=== PATIENT | male | born 1980 | race Caucasian/White ===

== ENCOUNTER 2017-01-29 19:06 | Inpatient (IN) | payer BC, OTHER ==
--- NOTE | ~2017-01-29 | PA ---
Unit #: [id number] #: [id number] Patient: KIRILL SERNA [id number] [facility] [address] [place] [address] [id number] MR#: [id number] NAME: KIRILL SERNA ROOM: 61 Age: 36 Sex: M Admission Date: 01/29/2017 : 1980 Date of Assessment: 01/29/2017 Attending Physician: Diana Castaneda M.D. Admitting Physician: Diana Castaneda M.D. Primary Care Physician: Primary Care Physician No PSYCHIATRIC ASSESSMENT DATE OF SERVICE 01/30/2017. IDENTIFYING DATA Mr. Serna is a 36-year-old white male, who is a resident of [place], [place], and was transferred to us from [facility] Emergency Room, where he was taken via EMS after intentional overdose of Vicodin. CHIEF COMPLAINT "I'm depressed and I'm suicidal." HISTORY OF PRESENT ILLNESS Mr. Serna is a 36-year-old white male with history of mood disorder, who was taken to [facility] with intentional overdose of Vicodin and reports that he took 25 mg tablets of Vicodin this morning after an altercation with his spouse at home and reports that he has been getting into argument with his spouse and he has been experiencing several stressors that precipitated to his suicide attempt and reports that his 's father and so she quit her job and has not been attending to tasks at home in terms of caring for children, buying groceries, and cleaning and the patient reports that he is taking care of his 4 children, his spouse identifying her as a child #5 and reports that he work 60 hours a week and 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 SUBSTANCE ABUSE HISTORY The patient reports history of alcohol abuse, but denies any other drug abuse. PAST PSYCHIATRIC HISTORY The patient has had history of inpatient psychiatric hospitalizations at [facility], and currently is not active in any treatment program, though he is supposed to be on Paxil 20 mg a day. PAST MEDICAL HISTORY The patient's medical history is insignificant. ALLERGIES No known medication allergies. Unit #: [id number] #: [id number] Patient: KIRILL SERNA PERSONAL AND SOCIAL HISTORY A 36-year-old white male, who reports that he is and lives at home with his and 4 children and has fairly decent social support system. MENTAL STATUS EXAMINATION Young white male who was casually dressed with fair personal hygiene, appears to be in no acute distress or discomfort. He was awake and alert on interaction with intact orientation to time, place, and person. His mood was anxious and depressed with a congruent affect. His speech was slow and restricted in content. His thought processes were disorganized with some looseness of associations and suicidal ideations. His insight and judgment remain significantly impaired. DIAGNOSTIC IMPRESSION Psychiatric: Major depressive disorder, recurrent, moderate, without psychotic features; generalized anxiety disorder. Medical: None. Stressors: Moderate psychosocial stressors. TREATMENT PLAN 1. The patient has presented with history of mood disorder and has been decompensating and will need inpatient hospitalization for safety and stabilization. We will start him back on his home medications. We will adjust the medications and monitor response. 2. Supportive therapy was provided to the patient. 3. Safe, structured, and nourishing environment will be reported. ESTIMATED LENGTH OF STAY 4 to 5 days. ABILITY TO HELP SELF Limited. WILLINGNESS TO HELP SELF The patient appears to be willing to help self. STRENGTHS 1. Communicative. 2. Cooperative. PROBLEMS 1. Chronic dysphoric symptoms. 2. Poor social support system. DISCHARGE CRITERIA This will be contingent upon the patient's ability to show resolution of his depression and anxiety and his ability to stay safe to himself, particularly after discharge from the hospital. Dictated by... Iram Poole/kirill TD: 01/30/2017 07:10 JOB #: [id number] Unit #: [id number] #: [id number] Patient: KIRILL SERNA PSYCHIATRIC ASSESSMENT Page 1 of 1 X Diana Castaneda MD PSYCHIATRIC ASSESSMENT
--- NOTE | ~2017-01-29 | HP ---
Unit #: [id number] #: [id number] Patient: KIRILL SERNA [id number] [place] [address] [id number] MR#: [id number] NAME: KIRILL SERNA ROOM: 61 Age: 36 Sex: M Admission Date: 01/29/2017 : 1980 Attending Physician: Diana Castaneda M.D. Admitting Physician: Diana Castaneda M.D. Primary Care Physician: Primary Care Physician No HISTORY AND PHYSICAL HISTORY OF PRESENT ILLNESS Kirill is a 36 year old admitted to [address] [place] [address] with depression and after an alleged overdose of five 5 mg hydrocodone tablets. He was medically cleared in a local emergency room and then transferred to [facility] for psychiatric care. PAST MEDICAL HISTORY Nothing significant. PAST SURGICAL HISTORY Right hand. ALLERGIES No known drug allergies. SOCIAL HISTORY Dips less than a can of snuff on a daily basis. Denies alcohol and illicit drug use. FAMILY HISTORY Medically noncontributory. REVIEW OF SYSTEMS CONSTITUTIONAL: No fever or chills. HEENT: Denies any sore throat, ear pain or runny nose. CARDIOVASCULAR: Denies chest pain, irregular heart rhythm or palpitations. CHEST: Denies shortness of breath or cough. No hemoptysis. GASTROINTESTINAL: Denies nausea, vomiting, diarrhea or chronic constipation. ENDOCRINE: Denies history of increased thirst or urination. No recent significant weight loss or gain. GENITOURINARY: Denies dysuria, frequency, or hematuria. SKIN: Denies any rashes. HEMATOLOGIC: Denies history of increased bleeding or bruising. MUSCULOSKELETAL: Denies any hot, swollen joints. No generalized muscle pain. NEUROLOGIC: Denies problems with vision or speech. No frequent, severe headaches. No numbness, tingling or weakness in any extremities. Denies loss of bladder or bowel control. CURRENT MEDICATIONS 1. BuSpar 10 mg b.i.d. 2. Paxil 40 mg daily. Unit #: [id number] #: [id number] Patient: KIRILL SERNA 3. Milk of Magnesia p.r.n. 4. Maalox p.r.n. 5. Tylenol p.r.n. PHYSICAL EXAMINATION GENERAL: Alert, well-nourished, in no apparent distress. VITAL SIGNS: Blood pressure 115/76, heart rate 58, respirations 16, temperature 98.6. WEIGHT: 196. HEIGHT: 5 feet 11 inches. SKIN: Warm and dry without rash or lesion. HEENT: Normocephalic. TMs not viewed. Oral and nasal passages clear. Conjunctivae clear. PERRLA. EOMs intact. NECK: Supple without lymphadenopathy or thyromegaly. HEART: Regular rate and rhythm without murmur. LUNGS: Clear. ABDOMEN: Soft, nontender. : Not done. EXTREMITIES: No evidence of cyanosis, clubbing or edema. Moves all without focal deficit. NEUROLOGICAL: Grossly within normal limits. Cranial Nerves: II: Visual lala are intact. III, IV AND : Extraocular movements are intact. Pupils are equal, round and reactive to light. V: Facial sensation is grossly normal. VII: Facial movements and expression are normal. VIII: Auditory acuity grossly intact. IX, X: Uvula is midline. Phonation is normal. XI: Patient shrugs shoulders and turns head normally. XII: Tongue protrudes in the midline. Sensory and Motor Function: Sensory and motor sensation is grossly normal. Motor: moves all extremities well. Coordination: Gait is normal. Deep Tendon Reflexes: Intact. IMPRESSION Psychiatric admission. RECOMMENDATIONS PSYCHIATRIC: Per psychiatrist. MEDICAL: See no contraindications to participate in facility's activities. MEDICAL PROGNOSIS Good. MEDICAL CONDITION Stable. Dictated by... Michelle Delgado P.A.-C. for Iram Pisano/dutch TD: 01/30/2017 18:38 JOB #: [id number] Unit #: [id number] #: [id number] Patient: KIRILL SERNA HISTORY AND PHYSICAL Page 1 of 1 X Michelle Delgado HISTORY AND PHYSICAL
--- NOTE | ~2017-01-29 | PN ---
Unit #: [id number] #: [id number] Patient: KIRILL SERNA [id number] [facility] [address] [place] [address] [id number] MR#: [id number] NAME: KIRILL SERNA ROOM: [facility] Age: 36 Sex: M Admission Date: 01/29/2017 : 1980 Attending Physician: Diana Castaneda M.D. Admitting Physician: Diana Castaneda M.D. Primary Care Physician: Primary Care Physician Ngoc RAYGOZA NOTES DATE 01/31/2017 DISCUSSION Mr. Serna is a 36-year-old, white male who was seen today and chart was reviewed and case was discussed with the staff. He has been anxious, withdrawn, depressed and seclusive to himself with blunted affect with minimal interaction. Meanwhile, he has been taking medication and tolerating them fairly well with no reported side effects. MENTAL STATUS EXAM Young white male who was casually dressed with fair personal hygiene, appears to be in no acute distress or discomfort. He was awake and alert on interaction with intact orientation. His mood was anxious with congruent affect. He denies any suicidal or homicidal ideation. His insight and judgement remains slightly impaired. TREATMENT PLAN 1. We will continue him on his current medication and treatment protocol. We will monitor his response to the medication and make further adjustments as needed. 2. We will continue to follow up. Dictated by... Iram Poole/angel TD: 02/02/2017 01:06 JOB #: [id number] Unit #: [id number] #: [id number] Patient: KIRILL SERNA PROGRESS NOTES Page 1 of 1 X Diana Castaneda MD PROGRESS NOTE
--- NOTE | ~2017-01-29 | PN ---
Unit #: [id number] #: [id number] Patient: KIRILL SERNA [id number] [facility] [address] [place] [address] [id number] MR#: [id number] NAME: KIRILL SERNA ROOM: [facility] Age: 36 Sex: M Admission Date: 01/29/2017 : 1980 Attending Physician: Diana Castaneda M.D. Admitting Physician: Diana Castaneda M.D. Primary Care Physician: Primary Care Physician Ngoc MONTES PROGRESS NOTES DATE OF SERVICE: 02/01/2017 SUBJECTIVE Mr. Serna is a 36-year-old white male who was seen today and chart was reviewed, and case was discussed with the staff. He has been anxious, withdrawn, and rather seclusive to himself. Meanwhile, he has been cooperative with treatment recommendations and has been taking the medications and tolerating them fairly well with no reported side effects. MENTAL STATUS EXAMINATION Young white male who was casually dressed with fair personal hygiene, appears to be in no acute distress or discomfort. He was awake and alert on interaction with intact orientation. His mood was anxious with a congruent affect. He denies any suicidal or homicidal ideation. His insight and judgment remain slightly impaired. TREATMENT PLAN 1. We will continue him on his current medications and treatment protocol. We will monitor his response to medications and make further adjustments as needed. 2. We will continue to follow up. Dictated by... Iram Poole/kirill TD: 02/01/2017 12:28 JOB #: [id number] [facility] PROGRESS NOTES Page 1 of 1 X Diana Castaneda MD PROGRESS NOTE
--- NOTE | ~2017-01-29 | DS ---
Unit #: [id number] #: [id number] [facility] [id number] [facility] [address] [place] [address] [id number] I MR#: [id number] NAME: KIRILL SERNA ROOM: [facility] Age: 36 Sex: M Admission Date: 01/29/2017 : 1980 Discharge Date: 02/03/2017 Attending Physician: Diana Castaneda M.D. Primary Care Physician: Primary Care Physician No DISCHARGE SUMMARY IDENTIFYING DATA Mr. Serna is a 36-year-old white male, who is a resident of [place], [place] and was transferred to us from [facility] Emergency Room, where he was taken after intentional overdose of Vicodin. DISCHARGE DIAGNOSES Psychiatric: Major depressive disorder, recurrent, moderate, without psychotic features; generalized anxiety disorder. Medical: None. Stressors: Moderate psychosocial stressors. HISTORY OF PRESENT ILLNESS Please see initial psychiatric evaluation for details. PAST PSYCHIATRIC HISTORY Please see initial psychiatric evaluation for details. PAST MEDICAL HISTORY Please see initial psychiatric evaluation for details. HOSPITAL COURSE The patient was admitted to the adult psychiatric unit at [facility] and was oriented to the hospital environment. Routine p.r.n. medications were initiated, and he was started back on his home medications, and medications were adjusted, and he was initially on 72 hours hold, which was maintained. He was polite and pleasant and cooperative with treatment recommendation, but was getting anxious and restless about wanting to go home. However, he was taking the medications regularly and was tolerating them fairly well, and Paxil was increased to 40 mg a day and BuSpar as an augmenting agent, and anxiolytic was also added with good tolerability and therapeutic response, followed by which, it was decided that he will be discharged home and will continue treatment on an outpatient basis. DISCHARGE MEDICATIONS Paxil 40 mg a day for depression, BuSpar 10 mg b.i.d. for anxiety. DISCHARGE CONDITION Stable. PROGNOSIS Fair. Unit #: [id number] #: [id number] Patient: KIRILL SERNA Dictated by... Diana Castaneda M.D. IAA/modl TD: 02/03/2017 07:55 JOB #: [id number] DISCHARGE SUMMARY Page 1 of 1 X Diana Castaneda MD DISCHARGE SUMMARY
[2017-01-30 09:34] LABS: BASOPHIL% 0.6 % (0-2.5); EOSINOPHIL# 0.3 X10e3 (0-0.7); EOSINOPHIL% 4.9 % (0.0-7.0); HEMOGLOBIN 15.1 gm/dL (13.0-16.0); LYMPHOCYTE# 1.9 X10e3 (1.0-3.5); LYMPHOCYTE% 29.5 % (17.0-45.0); MEAN CELL VOLUME 88.2 FL (83-96); MEAN CORPUSCULAR HEMOGLOBIN 28.9 PG (28-34); MEAN CORPUSCULAR HGB CONC 32.8 g/dL (30-36); MEAN PLATELET VOLUME 7.8 FL (6.5-11.5); MONOCYTE# 0.6 X10e3 (0-1.0); MONOCYTE% 9.7 % (3.0-12.0); NEUTROPHIL# 3.6 X10e3 (1.5-7.1); NEUTROPHIL% 55.3 % (40-75); PLATELET COUNT 281 X10e3 (140-420); RED BLOOD COUNT 5.22 X10e (3.90-5.60); RED CELL DISTRIBUTION WIDTH 12.8 % (11.0-15.5); WHITE BLOOD COUNT 6.5 X10e3 (4.0-10.5)
[2017-01-30 09:53] LABS: DIFF IND NO
[2017-01-31 13:22] LABS: URINE APPEARANCE CLOUDY; URINE BILIRUBIN NEG (NEG); URINE BLOOD NEG (NEG); URINE COLOR YELLOW; URINE GLUCOSE NEG (NEG); URINE KETONE NEG (NEG); URINE LEUKOCYTE ESTERASE NEG (NEG); URINE NITRATE NEG (NEG); URINE PH 7.5 (5-8); URINE PROTEIN NEG (NEG); URINE SPECIFIC GRAVITY 1.015 (1.003-1.035)
== END 2017-02-03 12:45 | disposition home or self-care (01) | DRG 885 ==
LOC: P2L 19:06
PROVIDERS: Psychiatry & Neurology Psychiatry
DX: F33.1 Major depressive disorder, recurrent, moderate (principal); R45.851 Suicidal ideations; F41.1 Generalized anxiety disorder; F17.220 Nicotine dependence, chewing tobacco, uncomplicated; T39.1X2D Poisoning by 4-Aminophenol derivatives, intentional self-harm, subsequent encounter
CPT/HCPCS: 81003; 85025